=== PATIENT | female | born 1955 | race Caucasian/White ===

== ENCOUNTER → 2017-04-17 | Day surgery (SDC) | payer OTHER ==
[~2017-04-17] MED LIST: CELE200C PO; COLE1TAB PO; IV RINGERS,LACTATED 1000ML 1,000 ML IV SCH; LIDOCAINE 1% 1 ML SYRINGE. ID PRN; LIDOCAINE 2% PF Vial for OR 5 ML VIAL. ONE; MIDAZOLAM HCL/PF 2 MG/2 ML VIAL. IV PRN; OMEP20TA8 PO; PROPOFOL 40 ML IV ONE; TRIA1CAP3 PO; fentaNYL PF VIAL 100 MCG/2 ML VIAL IV PRN
[2017-04-17 09:28] VITALS: BP 107/63
--- NOTE | 2017-04-17 12:42 | CONS ---
DATE OF CONSULTATION: 04/17/2017 REASON FOR CONSULTATION: Surveillance of colonic polyps and recurrent dysphagia. HISTORY OF PRESENT ILLNESS: This is a 61-year-old female with past medical history significant for colonic polyps, dysphagia, peptic ulcer disease, osteoarthrosis, history of gastric ulcers is seen for surveillance colonoscopy. Bowel habits have been regular without diarrhea or constipation, no melena and/or hematochezia. Surveillance exam is recommended at this time. In addition, she has recurrent dysphagia for solids, mainly in the substernal location. PAST MEDICAL HISTORY: Osteoarthrosis, history of colon polyps, peptic ulcer disease. ALLERGIES: LATEX. MEDICATIONS: Include Celebrex 200 mg b.i.d., triamterene/hydrochlorothiazide 1 daily for hypertension. FAMILY HISTORY: Noncontributory. SOCIAL HISTORY: Social drinker, nonsmoker. She is 2, para 2. PAST SURGICAL HISTORY: She is status post tubal ligation, cholecystectomy. PHYSICAL EXAMINATION: GENERAL: Reveals a well-nourished, well-developed female. VITAL SIGNS: Temperature is 97.6, pulse 78, respirations 20. HEENT: Normocephalic, atraumatic head. Pupils and extraocular movements not tested. Sclerae anicteric. NECK: Supple. LUNGS: Clear. CARDIOVASCULAR: Reveals an S1, S2 without S3, S4 or appreciable murmur. ABDOMEN: Reveals a soft abdomen, normoactive bowel sounds, without appreciable hepatosplenomegaly. EXTREMITIES: Reveals no cyanosis, clubbing or edema. IMPRESSION: 1. Colonic polyps. Surveillance exam is recommended at this time. Risks and benefits of procedure have been discussed with the patient who is willing to proceed at this time. 2. Dysphagia, most likely secondary to recurrent Schatzki ring. Differential includes achalasia, Petersen's, eosinophilic esophagitis and/or malignancy. Upper endoscopy was done, dilatation was recommended. Risks and benefits have been discussed and she is willing to proceed. RYAN JACKSON MD DR: LINN/mitzi JOB#: [id number] / [id number]
== END | disposition home or self-care (01) ==
LOC: ENDOS 07:04
PROVIDERS: ATTEND Internal Medicine Gastroenterology
DX: Z09 Encounter for follow-up examination after completed treatment for conditions other than malignant neoplasm (principal); Z86.010 Personal history of colon polyps; K64.0 First degree hemorrhoids; K57.30 Diverticulosis of large intestine without perforation or abscess without bleeding; M19.90 Unspecified osteoarthritis, unspecified site; K22.2 Esophageal obstruction; K29.50 Unspecified chronic gastritis without bleeding; E78.00 Pure hypercholesterolemia, unspecified; I10 Essential (primary) hypertension; Z98.51 Tubal ligation status; Z87.11 Personal history of peptic ulcer disease; Z98.890 Other specified postprocedural states; Z90.49 Acquired absence of other specified parts of digestive tract
CPT/HCPCS: 43450; 45378; J2704; J2001

== ENCOUNTER → 2018-11-28 | Day surgery (SDC) | payer OTHER ==
[~2018-11-28] MED LIST changes: +HYDROmorphone 2 MG/ML VIAL IV PRN; -LIDOCAINE 1% 1 ML SYRINGE. ID PRN; +LIDOCAINE 2% PF 5 ML VIAL. ONE; -LIDOCAINE 2% PF Vial for OR 5 ML VIAL. ONE; -MIDAZOLAM HCL/PF 2 MG/2 ML VIAL. IV PRN; +MORPHINE SULFATE 2 MG/ML VIAL. IV PRN; +ONDANSETRON PF 4 MG/2 ML VIAL. IV PRN; +PROCHLORPERAZINE 10 MG/2 ML VIAL. IV PRN; +PROPOFOL 20 ML IV ONE; -PROPOFOL 40 ML IV ONE; +RANI-376 PO
[2018-11-28 10:52] VITALS: BP 108/69
--- NOTE | 2018-12-01 15:06 | PATHOLOGY ---
[facility] Accession Number: [id number] . 01 Material submitted: . esophagus - ESOPHAGEAL BIOPSIES . 01 Clinical history: . Dysphagia . 02 Diagnosis: Esophagus, biopsy: - Fragments of hyperplastic squamous epithelium without significant inflammation. - Scant fragment of columnar epithelium with mild chronic inflammation and no evidence of intestinal metaplasia. (SKM:oziel; 12/01/2018) QMS/12/01/2018 . 02 Electronically signed: . Dirk Carbajal MD, Pathologist NPI- [id number] . 01 Gross description: . The specimen is received in formalin, labeled "Wood, Lenora, esophageal biopsies" and consists of 4 translucent fragments of pink-stover tissue measuring between 0.3 x 0.3 cm and 0.7 x 0.3 x 0.1 cm. They are entirely submitted A1. (SDY; 11/28/2018) SYU/SYU . 02 Pathologist provided ICD-10: K20.9 . 02 CPT . 563310 Specimen Comment: A courtesy copy of this report has been sent to Specimen Comment: [phone], . Specimen Comment: Report sent to / DR TENORIO Performed at: 01 [facility] [address], [place] [id number] MD Joe Camacho MD Phone: [phone] Performed at: 02 [facility] [address] [place], [place] [id number] MD Thomas Rooney MD Phone: [phone]
== END | disposition home or self-care (01) ==
LOC: ENDOS 09:17
PROVIDERS: ATTEND Internal Medicine Gastroenterology
DX: K22.2 Esophageal obstruction (principal); K21.0 Gastro-esophageal reflux disease with esophagitis; Z88.0 Allergy status to penicillin; Z91.040 Latex allergy status; E78.00 Pure hypercholesterolemia, unspecified; Z87.11 Personal history of peptic ulcer disease; Z82.49 Family history of ischemic heart disease and other diseases of the circulatory system; Z72.89 Other problems related to lifestyle; Z79.899 Other long term (current) drug therapy; Z90.49 Acquired absence of other specified parts of digestive tract; Z90.710 Acquired absence of both cervix and uterus; Z98.890 Other specified postprocedural states; Z98.51 Tubal ligation status
CPT/HCPCS: 43239; 43450; 88305; J2001; J2704